=== PATIENT | female | born 1970 | race Asian ===

== ENCOUNTER 2017-05-04 15:41 | Emergency (ER) | payer OTHER, BC ==
--- NOTE | 2017-05-04 19:00 | ED Physician Documentation ---
PD HPI HEENT - Stated complaint Stated Complaint: HEARING ISSUE - Chief complaint Chief Complaint: Heent - History obtained from History obtained from: Patient - History of Present Illness Timing - onset: How many days ago (several) Timing - duration: Days Timing - details: Gradual onset, Still present, Waxing and waning Location: Right ear (feels less hearing, like it needs to clear. Has had some sore throat in morning, fullness right maxillary area.) Worsens: No: Swalllowing Associated symptoms: Congestion. No: Fever, Facial swelling, Cough Similar symptoms before: Has not had sx before Recently seen: Not recently seen Review of Systems Constitutional: denies: Fever, Chills Ears: reports: Loss of hearing. denies: Ear pain, Drainage/discharge, Tinnitus/ ringing Nose: reports: Congestion, Sinus pressure / pain Throat: reports: Sore throat (in morning, scratchy.) Cardiac: denies: Chest pain / pressure, Palpitations Respiratory: denies: Cough Skin: denies: Rash, Lesions PD PAST MEDICAL HISTORY - Past Medical History Past Medical History: No - Past Surgical History Past Surgical History: No - Present Medications Home Medications: Ambulatory Orders Medication Instructions Recorded Confirmed Cetirizine [ZyrTEC] 10 mg PO DAILY #14 tablet 05/04/17 Dexamethasone [Decadron] 4 mg PO DAILY #5 tablet 05/04/17 Doxycycline Hyclate 100 mg PO BID #14 tablet 05/04/17 - Allergies Allergies/Adverse Reactions: Allergies Allergy/AdvReac Type Severity Reaction Status Date / Time No Known Drug Allergies Allergy Verified 05/04/17 15:57 - Social History Does the pt smoke?: No Smoking Status: Never smoker Does the pt drink ETOH?: Yes Does the pt have substance abuse?: No PD ED PE NORMAL - Vitals Vital signs reviewed: Yes - General General: Alert and oriented X 3, No acute distress, Well developed/nourished - HEENT HEENT: Ears normal, Pharynx benign - Neck Neck: Supple, no meningeal sign, Other (mild right adenopathy on neck. ) - Cardiac Cardiac: RRR, No murmur - Respiratory Respiratory: Clear bilaterally - Abdomen Abdomen: Soft, Non tender - Derm Derm: Normal color, Warm and dry, No rash - Neuro Neuro: Alert and oriented X 3, second floor operator 2-12 intact, No motor deficit, Normal speech Results - Vitals Vitals: Oxygen O2 Source Room air PD MEDICAL DECISION MAKING - ED course Complexity details: considered differential (his hearing feels plugged. Ear looks okay. Has sinus symptoms. ), d/w patient Departure - Departure Disposition: 01 Home, Self Care Clinical Impression: Dysacusis Qualifiers: Laterality: right Qualified Code(s): H93.291 - Other abnormal auditory perceptions, right ear Sinusitis, acute Qualifiers: Sinusitis location: ethmoidal Recurrence: non-recurrent Qualified Code(s): J01.20 - Acute ethmoidal sinusitis, unspecified Condition: Stable Record reviewed to determine appropriate education?: Yes Instructions: ED Sinusitis Abx Tx Follow-Up: [facility] [Provider Group] Prescriptions: Cetirizine [ZyrTEC] 10 mg PO DAILY #14 tablet Dexamethasone [Decadron] 4 mg PO DAILY #5 tablet Doxycycline Hyclate 100 mg PO BID #14 tablet Comments: We will treat this as some inflammation or infection of the sinus and causing a blockage of the eustachian tube and affecting the hearing. Will use doxycycline twice a day for a week and dexamethasone daily for 5 days for infection and inflammation. Cetirizine antihistamine daily for 1-2 weeks. Also use Nasacort steroid nose spray once daily for the next several weeks. Recheck with your primary care or ENT in [place] if not improved over the next 5 or 6 days. Discharge Date/Time: 05/04/17 19:36
[2017-05-04 19:36] VITALS: BP 141/78
== END 2017-05-04 19:36 | disposition home or self-care (01) ==
LOC: ED 15:41
DX: H93.291 Other abnormal auditory perceptions, right ear (principal); J01.20 Acute ethmoidal sinusitis, unspecified
CPT/HCPCS: 99283

== ENCOUNTER 2018-09-09 00:07 | Emergency (ER) | payer BC, OTHER ==
[2018-09-09] MEDS ORDERED: SODIUM CHLORIDE 0.9% 1,000 ML IV ONE (00:20)
[2018-09-09] MEDS ORDERED: IBUPROFEN 800 MG TABLET PO STA (00:20)
[2018-09-09 00:49] LABS: BASOPHILS % (AUTO) 0.3 %; EOSINOPHILS % (AUTO) 0.6 %; HGB - HEMOGLOBIN 12.9 g/dL (12.0-16.0); LYMPHOCYTES % (AUTO) 14.2 %; MEAN CORPUSCULAR HGB CONC 33.1 g/dL (32.0-36.0); MEAN CORPUSCULAR VOLUME 90.8 fL (81.0-99.0); MEAN PLATELET VOLUME 7.5 fL (7.9-10.8); MONOCYTES # (AUTO) 0.1 10^3/uL (0.0-1.0); NEUTROPHILS # (AUTO) 5.8 10^3/uL (1.5-6.6); NEUTROPHILS % (AUTO) 83.9 %; PLT - PLATELET COUNT 192 10^3/uL (130-450); RED BLOOD COUNT 4.31 10^6/uL (4.20-5.40); WHITE BLOOD COUNT 6.9 x10^3/uL (4.8-10.8)
[2018-09-09 00:54] LABS: BILIRUBIN,URINE NEGATIVE (NEGATIVE); GLUCOSE, URINE (UA) NEGATIVE (NEGATIVE); KETONES,URINE (UA) TRACE mg/dL (NEGATIVE); LEUKOCYTE ESTERASE, URINE MODERATE (NEGATIVE); NITRITE,URINE NEGATIVE (NEGATIVE); OCCULT BLOOD,URINE LARGE (NEGATIVE); PROTEIN,URINE 100 mg/dL (NEGATIVE); UROBILINOGEN,URINE 0.2 (NORMAL) E.U./dL (NORMAL)
[2018-09-09 00:55] LABS: CLARITY,URINE SL. CLOUDY (CLEAR)
--- NOTE | 2018-09-09 00:58 | ED Physician Documentation ---
PD HPI FEMALE - Stated complaint Stated Complaint: CHILLS - Chief complaint Chief Complaint: Fever - History obtained from History obtained from: Patient, Family () - History of Present Illness Timing - onset: How many days ago (4) Timing - details: Gradual onset, Still present Associated symptoms: Fever, Dysuria Similar symptoms before: Has not had sx before - Additional information Additional information: The patient is a 48-year-old female who presents with fever and chills. She has had dysuria for the past 4 days. Fever started yesterday, with chills tonight. She has had one episode of vomiting just prior to arrival. She denies headache, sore throat, cough, or shortness of breath. She denies history of similar symptoms in the past. Her last menstrual period ended 5 days ago. Review of Systems Constitutional: reports: Fever, Chills Nose: denies: Congestion Throat: denies: Sore throat Cardiac: denies: Chest pain / pressure Respiratory: denies: Dyspnea, Cough GI: reports: Abdominal Pain (Mild lower abdominal pain.), Vomiting (once) : reports: Dysuria, Frequency, LMP (Ended 5 days ago.) Skin: denies: Rash Musculoskeletal: denies: Back pain Neurologic: denies: Headache PD PAST MEDICAL HISTORY - Past Medical History Cardiovascular: None Respiratory: None Endocrine/Autoimmune: None - Past Surgical History Past Surgical History: No - Present Medications Home Medications: Ambulatory Orders Medication Instructions Recorded Confirmed Cetirizine [ZyrTEC] 10 mg PO DAILY #14 tablet 05/04/17 Dexamethasone [Decadron] 4 mg PO DAILY #5 tablet 05/04/17 Doxycycline Hyclate 100 mg PO BID #14 tablet 05/04/17 Nitrofurantoin Monohyd/M-Cryst 100 mg PO BID #10 capsule 09/09/18 [Macrobid 100 mg Capsule] Phenazopyridine HCl [Pyridium] 200 mg PO TID PRN #6 tablet 09/09/18 - Allergies Allergies/Adverse Reactions: Allergies Allergy/AdvReac Type Severity Reaction Status Date / Time No Known Drug Allergies Allergy Verified 05/04/17 15:57 - Social History Does the pt smoke?: No Smoking Status: Never smoker Does the pt drink ETOH?: Yes Does the pt have substance abuse?: No PD ED PE NORMAL - Vitals Vital signs reviewed: Yes (febrile, tachycardic) - General General: Alert and oriented X 3, Well developed/nourished - HEENT HEENT: Atraumatic, Pharynx benign - Neck Neck: No adenopathy, No JVD - Cardiac Cardiac: Other (Rapid rate, regular rhythm) - Respiratory Respiratory: No respiratory distress, Clear bilaterally - Abdomen Abdomen: Soft, Other (Mild suprapubic tenderness to palpation, without rebound or guarding.) - Back Back: No CVA TTP - Derm Derm: No rash - Extremities Extremities: No edema, No calf tenderness / cord - Neuro Neuro: Alert and oriented X 3, No motor deficit, Normal speech Results - Vitals Vitals: Vital Signs - 24 hr 09/09/18 09/09/18 09/09/18 00:12 00:14 01:27 Temperature 38.2 C H Heart Rate 141 H 127 H 100 Respiratory 20 20 18 Rate Blood Pressure 144/75 H 144/75 H 117/69 O2 Saturation 100 92 95 Oxygen O2 Source Room air - Labs Labs: Laboratory Tests 09/09/18 09/09/18 09/09/18 00:23 00:33 00:33 WBC 6.9 RBC 4.31 Hgb 12.9 Hct 39.2 MCV 90.8 MCH 30.0 MCHC 33.1 RDW 13.0 Plt Count 192 MPV 7.5 L Neut # (Auto) 5.8 Lymph # (Auto) 1.0 L Cedar # (Auto) 0.1 Eos # (Auto) 0.0 Baso # (Auto) 0.0 Absolute Nucleated RBC 0.00 Nucleated RBC % 0.0 HCG, Quant < 0.60 Urine Color YELLOW Urine Clarity SL. CLOUDY Urine pH 6.0 Ur Specific Hector 1.025 Urine Protein 100 H Urine Glucose (UA) NEGATIVE Urine Ketones TRACE Urine Occult Blood LARGE H Urine Nitrite NEGATIVE Urine Bilirubin NEGATIVE Urine Urobilinogen 0.2 (NORMAL) Ur Leukocyte Esterase MODERATE H Urine RBC 6-10 H Urine WBC >25 H Ur Squamous Epith Cells NONE SEEN Urine Bacteria Few Ur Microscopic Review INDICATED Urine Culture Comments INDICATED PD MEDICAL DECISION MAKING - ED course Complexity details: reviewed results, re-evaluated patient, considered differential, d/w patient, d/w family ED course: The patient's presentation is most consistent with urinary tract infection, with associated fever and chills. Clinically, she does not appear septic, and her white count is normal at 6.9. Her urinalysis is positive for pyuria and bacteriuria. Culture and sensitivity is pending. Treatment in the emergency department included administration of normal saline 1 Liter IV, Ibuprophen 800 mg orally, Macrobid 100 mg orally, and Pyridium 200 mg orally. She is being discharged with prescriptions for Macrobid and Pyridium. I discussed with her and her the diagnosis, expected course of illness, antibiotic treatment and outpatient follow-up, as well as potentially worrisome signs or symptoms that should prompt reevaluation in the emergency department. Departure - Departure Disposition: Home, Self Care Clinical Impression: UTI (urinary tract infection) Qualifiers: Urinary tract infection type: acute cystitis Hematuria presence: without hematuria Qualified Code(s): N30.00 - Acute cystitis without hematuria Condition: Stable Instructions: ED UTI Cystitis Female Follow-Up: [facility] [Provider Group] Prescriptions: Nitrofurantoin Monohyd/M-Cryst [Macrobid 100 mg Capsule] 100 mg PO BID #10 capsule Phenazopyridine HCl [Pyridium] 200 mg PO TID PRN #6 tablet PRN Reason: dysuria Comments: Drink plenty of fluids, including cranberry juice. Take Macrobid twice daily as prescribed. You can use Pyridium as prescribed if needed for painful urination. You can use Tylenol or ibuprofen as needed for fever or discomfort. Follow up with your primary physician within 2 weeks. Call to schedule appointment. Return to the emergency department if you develop increasing abdominal pain, fever with shaking chills, persistent vomiting, or otherwise worsening symptoms. Discharge Date/Time: 09/09/18 01:28
[2018-09-09 01:00] LABS: BACTERIA,URINE Few /HPF (None Seen); SQUAMOUS EPITHELIAL CELL,UR NONE SEEN (<= Few)
[2018-09-09] MEDS ORDERED: NITROFURANTOIN MACRO 100 MG CAPSULE PO STA (01:07)
[2018-09-09] MEDS ORDERED: PHENAZOPYRIDINE 100 MG TABLET PO STA (01:08)
[2018-09-09 01:28] VITALS: BP 117/69
== END 2018-09-09 01:28 | disposition home or self-care (01) ==
LOC: ED 00:07
DX: N30.00 Acute cystitis without hematuria (principal)
CPT/HCPCS: 36415; 81001; 81003; 84702; 85025; 87086; 99283

== ENCOUNTER 2018-09-09 20:25 | Emergency (ER) | payer BC, OTHER ==
[2018-09-09 20:39] VITALS: BP 141/77
[2018-09-09] MEDS ORDERED: PSEUDOEPHEDRINE 30 MG TABLET PO STA (20:53)
[2018-09-09] MEDS ORDERED: IBUPROFEN 800 MG TABLET PO STA (20:54)
--- NOTE | 2018-09-09 20:57 | ED Physician Documentation ---
PD HPI URI - Stated complaint Stated Complaint: FEVER - Chief complaint Chief Complaint: Fever - History obtained from History obtained from: Patient, Family - History of Present Illness Timing - onset: How many days ago (3) Timing duration: Days (3) Timing details: Gradual onset Pain level max: 1 Pain level now: 1 Associated symptoms: Fever, Chills, Nasal congestion, Rhinorrhea, Dry cough Contributing factors: Sick contact Improves by: Rest Worsened by: Activity, Breathing Recently seen: Emergency Dept (last night for UTI, started on macrobid.) Review of Systems Constitutional: reports: Fever Respiratory: reports: Cough GI: denies: Nausea, Vomiting, Diarrhea Skin: denies: Rash Musculoskeletal: denies: Neck pain, Back pain Neurologic: denies: Headache PD PAST MEDICAL HISTORY - Past Medical History Cardiovascular: None Respiratory: None Endocrine/Autoimmune: None - Past Surgical History Past Surgical History: No - Present Medications Home Medications: Ambulatory Orders Medication Instructions Recorded Confirmed Cetirizine [ZyrTEC] 10 mg PO DAILY #14 tablet 05/04/17 Dexamethasone [Decadron] 4 mg PO DAILY #5 tablet 05/04/17 Doxycycline Hyclate 100 mg PO BID #14 tablet 05/04/17 Cetirizine HCl/Pseudoephedrine 1 each PO BID PRN #30 tab.er.12h 09/09/18 [Zyrtec-D Tablet] Nitrofurantoin Monohyd/M-Cryst 100 mg PO BID #10 capsule 09/09/18 [Macrobid 100 mg Capsule] Phenazopyridine HCl [Pyridium] 200 mg PO TID PRN #6 tablet 09/09/18 - Allergies Allergies/Adverse Reactions: Allergies Allergy/AdvReac Type Severity Reaction Status Date / Time No Known Drug Allergies Allergy Verified 05/04/17 15:57 - Social History Does the pt smoke?: No Smoking Status: Never smoker Does the pt drink ETOH?: Yes Does the pt have substance abuse?: No PD ED PE NORMAL - Vitals Vital signs reviewed: Yes - General General: Alert and oriented X 3, No acute distress - HEENT HEENT: PERRL, Ears normal, Moist mucous membranes, Pharynx benign - Neck Neck: Supple, no meningeal sign, No adenopathy - Cardiac Cardiac: RRR, Strong equal pulses - Respiratory Respiratory: No respiratory distress, Clear bilaterally - Abdomen Abdomen: Soft, Non tender, Non distended - Back Back: No CVA TTP, No spinal TTP - Derm Derm: Warm and dry - Extremities Extremities: No edema - Neuro Neuro: Alert and oriented X 3 - Psych Psych: Normal mood, Normal affect Results - Vitals Vitals: Vital Signs - 24 hr 09/09/18 09/09/18 20:35 20:43 Temperature 37.9 C H Heart Rate 115 H 110 H Respiratory 18 18 Rate Blood Pressure 141/77 H 141/77 H O2 Saturation 94 94 Oxygen O2 Source Room air - Labs Labs: Laboratory Tests 09/09/18 20:57 Influenza A (Rapid) Negative Influenza B (Rapid) Negative PD MEDICAL DECISION MAKING - ED course Complexity details: reviewed results, re-evaluated patient, considered differential, d/w patient, d/w family ED course: 48-year-old female presents the emergency department with what appears to be a viral upper respiratory infection. She is being treated for UTI as well. Does not appear to be pyelonephritis however. No CVA tenderness. Her dysuria is improving after being on antibiotics for 24 hours. She is well-appearing, nontoxic. Will continue decongestants at home and follow-up with her doctor. Influenza swab is negative. Patient counseled regarding signs and symptoms for which I believe and urgent re-evaluation would be necessary. Patient with good understanding of and agreement to plan and is comfortable going home at this time This document was made in part using voice recognition software. While efforts are made to proofread this document, sound alike and grammatical errors may occur. Departure - Departure Disposition: 01 Home, Self Care Clinical Impression: Viral URI with cough Fever Qualifiers: Fever type: unspecified Qualified Code(s): R50.9 - Fever, unspecified Condition: Good Instructions: ED Viral Syndrome Follow-Up: your,doctor in 1 week [Other] Prescriptions: Cetirizine HCl/Pseudoephedrine [Zyrtec-D Tablet] 1 each PO BID PRN #30 tab.er.12h PRN Reason: nasal congestion Comments: Continue the antibiotics at home. Return if you worsen. Drink plenty of fluids and rest.
== END 2018-09-09 21:42 | disposition home or self-care (01) ==
LOC: ED 20:25
DX: J06.9 Acute upper respiratory infection, unspecified (principal); N30.00 Acute cystitis without hematuria
CPT/HCPCS: 36415; 81001; 84702; 85025; 87086; 87275; 87276; 99283; A9270

== ENCOUNTER 2019-12-01 13:31 | Emergency (ER) | payer BC, OTHER ==
[2019-12-01] MEDS ORDERED: EPINEPHrine 1 MG/ML AMP ONE (13:56)
[2019-12-01] MEDS: DEXAMETHASONE 10 MG/ML VIAL IVP STA (13:57)
[2019-12-01] MEDS: diphenhydrAMINE INJ 50 MG/ML VIAL IVP STA (13:57)
--- NOTE | 2019-12-01 15:40 | ED Physician Documentation ---
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 She has a bit of a rash on her right shoulder associated with this. She has been stung a number of times previously usually she will have some swelling associated with her stings. She does not have a diagnosis of bee sting anaphylaxis. Review of Systems Constitutional: denies: Fever Eyes: denies: Decreased vision Ears: denies: Ear pain Nose: denies: Rhinorrhea / runny nose, Congestion Throat: reports: Other (Swollen lips). denies: Sore throat Cardiac: denies: Chest pain / pressure, Palpitations Respiratory: denies: Dyspnea, Cough GI: denies: Abdominal Pain, Nausea, Vomiting : denies: Dysuria, Frequency PD PAST MEDICAL HISTORY - Past Medical History Cardiovascular: None Respiratory: None Endocrine/Autoimmune: None - Past Surgical History Past Surgical History: No - Present Medications Home Medications: Ambulatory Orders Medication Instructions Recorded Confirmed Cetirizine [ZyrTEC] 10 mg PO DAILY #14 tablet 05/04/17 Doxycycline Hyclate 100 mg PO BID #14 tablet 05/04/17 dexAMETHasone [Decadron] 4 mg PO DAILY #5 tablet 05/04/17 Cetirizine HCl/Pseudoephedrine 1 each PO BID PRN #30 tab.er.12h 09/09/18 [Zyrtec-D Tablet] Nitrofurantoin Monohyd/M-Cryst 100 mg PO BID #10 capsule 09/09/18 [Macrobid 100 mg Capsule] Phenazopyridine HCl [Pyridium] 200 mg PO TID PRN #6 tablet 09/09/18 EPINEPHrine [Epinephrine] 0.3 mg IJ ONCE PRN #2 auto.injct 12/01/19 - Allergies Allergies/Adverse Reactions: Allergies Allergy/AdvReac Type Severity Reaction Status Date / Time No Known Drug Allergies Allergy Verified 12/01/19 13:38 - Social History Does the pt smoke?: No Smoking Status: Never smoker Does the pt drink ETOH?: Yes Does the pt have substance abuse?: No PD ED PE NORMAL - Vitals Vital signs reviewed: Yes (Hypotensive) - General General: Alert and oriented X 3, No acute distress, Well developed/nourished - HEENT HEENT: Atraumatic, PERRL, EOMI, Moist mucous membranes, Other (marked swelling of the right upper lip NO swelling to the tongue or pharynx., ) - Neck Neck: Supple, no meningeal sign, No bony TTP - Cardiac Cardiac: RRR, No murmur - Respiratory Respiratory: No respiratory distress, Clear bilaterally - Abdomen Abdomen: Soft, Non tender - Back Back: No CVA TTP, No spinal TTP - Derm Derm: Normal color, Warm and dry, Other (erythema to the right shoulder) - Extremities Extremities: No deformity, No edema, No calf tenderness / cord - Neuro Neuro: Alert and oriented X 3, banking consultant 2-12 intact, No motor deficit, No sensory deficit Eye Opening: Spontaneous Motor: Obeys Commands Verbal: Oriented GCS Score: 15 - Psych Psych: Normal mood, Normal affect Results - Vitals Vitals: Vital Signs - 24 hr 12/01/19 12/01/19 12/01/19 13:38 14:00 14:15 Temperature 36.7 C Heart Rate 72 82 68 Respiratory 22 21 18 Rate Blood Pressure 67/34 L 108/69 112/77 O2 Saturation 98 98 98 12/01/19 12/01/19 14:30 15:00 Temperature Heart Rate 66 78 Respiratory 18 20 Rate Blood Pressure 121/71 113/74 O2 Saturation 99 98 Oxygen O2 Source Room air PD MEDICAL DECISION MAKING - ED course Complexity details: re-evaluated patient, considered differential, d/w patient ED course: 49-year-old female with a bee sting to the right upper lip has massive swelling and she arrives to the emergency department hypotensive. She is administered dexamethasone and Benadryl has prompt improvement and she has further improvement as time goes on. 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 We will prescribe a EpiPen to her today. She has had bee stings previously with marked swelling she has not been diagnosed with anaphylaxis she arrived today hypotensive we are diagnosing her with bee sting anaphylaxis. Departure - Departure Disposition: 01 Home, Self Care Clinical Impression: Bee sting-induced anaphylaxis Qualifiers: Encounter type: initial encounter Injury intent: accidental or unintentional Qualified Code(s): T63.441A - Toxic effect of venom of bees, accidental (unin tentional), initial encounter Condition: Stable Instructions: ED Bite Sting Insect Gen Allergic React Follow-Up: [facility] [Provider [facility]] Prescriptions: EPINEPHrine [Epinephrine] 0.3 mg IJ ONCE PRN #2 auto.injct PRN Reason: bee sting Comments: Today when you were stung by this be you had a significant reaction that appears to be systemic and this affected your blood pressure. This indicates a condition called bee sting anaphylaxis. 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 In addition we have provided a prescription for an EpiPen and the recommendation is to use this immediately if you are stung by a bee again. Carry this with you at all times.
[2019-12-01 16:17] VITALS: BP 112/71
== END 2019-12-01 16:26 | disposition home or self-care (01) ==
LOC: ED 13:31
DX: T63.441A Toxic effect of venom of bees, accidental (unintentional), initial encounter (principal); R22.0 Localized swelling, mass and lump, head; R21 Rash and other nonspecific skin eruption
CPT/HCPCS: 36415; 96374; 99284

== ENCOUNTER 2021-08-29 04:57 | Outpatient (CLI) | payer BC, OTHER | END 2021-08-29 04:58 | disposition EMS.NT | LOC: EMS 04:57 | DX: M25.512 Pain in left shoulder (principal); V48.5XXA Car driver injured in noncollision transport accident in traffic accident, initial encounter; Y92.413 State road as the place of occurrence of the external cause ==

== ENCOUNTER 2023-12-11 04:56 | Emergency (ER) | payer BC, OTHER ==
--- NOTE | 2023-12-11 05:07 | ED Physician Documentation ---
History of Present Illness - Stated complaint Stated Complaint: LOW BP - Chief complaint Chief Complaint: Cardiac - Additonal information Additional information: Patient 53-year-old female presenting to the emergency department chief complai nt chest pain. Pain ongoing x 1 month. Today became worse and woke her from sleep. She felt slightly dizzy. Family took her blood pressure with a home's finger manometry And found her systolics in the 70s. They gave 2 Tylenol and she drank a glass of water before coming to the emergency department. Reports history of prediabetes. Denies any history of hypertension, dyslipidemia, smoking Review of Systems Constitutional: denies: Fever Eyes: denies: Loss of vision Ears: denies: Loss of hearing Nose: denies: Rhinorrhea / runny nose Throat: denies: Dental pain / toothache Cardiac: reports: Chest pain / pressure Respiratory: denies: Dyspnea GI: denies: Abdominal Pain : denies: Dysuria PD PAST MEDICAL HISTORY - Past Medical History Past Medical History: No Cardiovascular: None Respiratory: None Endocrine/Autoimmune: None - Past Surgical History Past Surgical History: No - Present Medications Home Medications: Ambulatory Orders Medication Instructions Recorded Confirmed Cetirizine [ZyrTEC] 10 mg PO DAILY #14 tablet 05/04/17 Doxycycline Hyclate 100 mg PO BID #14 tablet 05/04/17 dexAMETHasone [Decadron] 4 mg PO DAILY #5 tablet 05/04/17 Cetirizine HCl/Pseudoephedrine 1 each PO BID PRN #30 tab.er.12h 09/09/18 [Zyrtec-D Tablet] Nitrofurantoin Monohyd/M-Cryst 100 mg PO BID #10 capsule 09/09/18 [Macrobid 100 mg Capsule] Phenazopyridine HCl [Pyridium] 200 mg PO TID PRN #6 tablet 09/09/18 EPINEPHrine [Epinephrine] 0.3 mg IJ ONCE PRN #2 auto.injct 12/01/19 Pantoprazole Sodium [Protonix] 40 mg PO DAILY #30 tab 12/11/23 - Allergies Allergies/Adverse Reactions: Allergies Allergy/AdvReac Type Severity Reaction Status Date / Time No Known Drug Allergies Allergy Verified 12/11/23 05:04 - Social History Does the pt smoke?: No Smoking Status: Never smoker Does the pt drink ETOH?: Yes Does the pt have substance abuse?: No PD ED PE NORMAL - General General: Alert and oriented X 3 - HEENT HEENT: Atraumatic - Neck Neck: Supple, no meningeal sign - Cardiac Cardiac: RRR - Respiratory Respiratory: No respiratory distress - Abdomen Abdomen: Normal bowel sounds - Female Female : Deferred - Rectal Rectal: Deferred - Back Back: No CVA TTP - Derm Derm: Normal color - Extremities Extremities: No deformity - Neuro Neuro: Alert and oriented X 3, radio communication coordinator 2-12 intact, No motor deficit, No sensory deficit, Normal speech Results - Vitals Vitals: Vital Signs - 24 hr 12/11/23 12/11/23 12/11/23 05:02 05:13 06:58 Temperature 36.7 C Heart Rate 81 70 71 Respiratory 16 16 16 Rate Blood Pressure 122/63 122/63 113/66 O2 Saturation 97 99 98 Oxygen O2 Source Room air - EKG (time done) 0508 EKG releavant findings:: EKG personally interpreted by author of this note. Relevant findings are: Sinus rhythm with rate 72 bpm. Normal axis. Normal CA, QRS, QTc intervals. No ST segment elevations or T wave inversions. - Labs Labs: Laboratory Tests 12/11/23 12/11/23 12/11/23 05:11 05:31 05:31 WBC 11.4 H RBC 4.63 Hgb 13.6 Hct 42.9 MCV 92.7 MCH 29.4 MCHC 31.7 L RDW 12.6 Plt Count 253 MPV 9.5 Neut # (Auto) 8.2 H Lymph # (Auto) 2.4 [place] # (Auto) 0.5 Eos # (Auto) 0.2 Baso # (Auto) 0.0 Absolute Nucleated RBC 0.00 Nucleated RBC % 0.0 D-Dimer < 200.0 L Sodium 141 Potassium 3.4 L Chloride 105 Carbon Dioxide 30 Anion Gap 6.0 BUN 18 Creatinine 0.8 Estimated GFR (MDRD) 75 L Glucose 114 H Calcium 9.2 Total Bilirubin 0.3 AST 15 ALT 17 Alkaline Phosphatase 64 Troponin I High Sens < 2.3 L Total Protein 6.9 Albumin 4.0 Globulin 2.9 Albumin/Globulin Ratio 1.4 Lipase 14 PD Medical Decision Making - ED course ED course: Patient 53-year-old female presenting with 1 month history of substernal chest pain. Afebrile, hemodynamically stable. EKG nonacute. High-sensitivity troponin is negative as is her D-dimer. Per my interpretation her chest x-ray is also benign with no mediastinal widening, pneumothorax, hemothorax or cardiomegaly. Her abdominal exam is benign here in the emergency department. She was monitored for several hours without new or worsening symptoms. On reevaluation she does report a history of gastric reflux and family reports she has had endoscopies done in the past for evaluation of GERD. Given the duration of her symptoms as well as the location of her pain I believe that she is having a exacerbation of her chronic gastric reflux. She is not currently taking any medications. She is given dose of Protonix in the emergency department and discharged on course of same. She is encouraged to follow-up with her primary care doctor or return to the emergency department for new or worsening symptoms. Departure - Departure Disposition: 01 Home, Self Care Clinical Impression: Chest pain Instructions: ED Chest Pain Atypical Unkn Cause Prescriptions: Pantoprazole Sodium [Protonix] 40 mg PO DAILY #30 tab Comments: Thank you for allowing us to care for you today at [facility]. Prescriptions were sent to [facility] pharmacy, [place]. Today in the emergency department you were evaluated for any possible dangerous or life-threatening medical emergency. The test performed in the emergency department today including your EKG, blood work, chest x-ray were all very reassuring. We will give a dose of an antiacid medication. I like you to begin a course of antiacids as a believe it is possible you are experiencing gastric reflux or irritation around your esophagus. It is very important that you follow-up with your primary care doctor concerning your ER evaluation While your results today are very reassuring if you have new or worsening symptoms of any kind please return to the emergency room. Forms: PCP List
[2023-12-11 05:55] LABS: BASOPHILS % (AUTO) 0.2 %; EOSINOPHILS # (AUTO) 0.2 10^3/uL (0.0-0.7); EOSINOPHILS % (AUTO) 1.8 %; HCT - HEMATOCRIT 42.9 % (37.0-47.0); HGB - HEMOGLOBIN 13.6 g/dL (12.0-16.0); LYMPHOCYTES # (AUTO) 2.4 10^3/uL (1.5-3.5); LYMPHOCYTES % (AUTO) 20.8 %; MEAN CORPUSCULAR HEMOGLOBIN 29.4 pg (27.0-31.0); MEAN CORPUSCULAR HGB CONC 31.7 g/dL (32.0-36.0); MEAN CORPUSCULAR VOLUME 92.7 fL (81.0-99.0); MEAN PLATELET VOLUME 9.5 fL (7.9-10.8); MONOCYTES # (AUTO) 0.5 10^3/uL (0.0-1.0); MONOCYTES % (AUTO) 4.5 %; NEUTROPHILS # (AUTO) 8.2 10^3/uL (1.5-6.6); NEUTROPHILS % (AUTO) 72.3 %; PLT - PLATELET COUNT 253 10^3/uL (130-450); RED BLOOD COUNT 4.63 10^6/uL (4.20-5.40); RED CELL DISTRIBUTION WIDTH 12.6 % (12.0-15.0); WHITE BLOOD COUNT 11.4 x10^3/uL (4.8-10.8)
[2023-12-11 06:15] LABS: ALBUMIN/GLOBULIN RATIO 1.4 (1.0-2.2); ALKALINE PHOSPHATASE 64 IU/L (42-121); ALT ALANINE AMINOTRANSFERASE 17 IU/L (10-60); AST ASPARTATE AMINOTRANSFERASE 15 IU/L (10-42); BILIRUBIN,TOTAL 0.3 mg/dL (0.2-1.0); BUN - BLOOD UREA NITROGEN 18 mg/dL (6-20); CALCIUM 9.2 mg/dL (8.5-10.3); CARBON DIOXIDE - CO2 30 mmol/L (21-32); CHLORIDE 105 mmol/L (101-111); CREATININE 0.8 mg/dL (0.6-1.3); GFR - MDRD 75 (>89); GLUCOSE 114 mg/dL (74-104); LIPASE 14 U/L (11-82); POTASSIUM 3.4 mmol/L (3.5-4.5); SODIUM 141 mmol/L (135-145); TOTAL PROTEIN 6.9 g/dL (6.4-8.9)
[2023-12-11 06:19] LABS: TROPONIN I HIGH SENSITIVITY < 2.3 ng/L (2.3-14.8)
[2023-12-11] MEDS ORDERED: PANTOPRAZOLE 40 MG VIAL IVP STA (07:00)
[2023-12-11 07:06] VITALS: BP 113/66; O2SAT 98
--- NOTE | 2023-12-11 08:02 | XRAY Report ---
PROCEDURE: Chest 1V INDICATIONS: chest pain TECHNIQUE: One view of the chest was acquired. COMPARISON: None. FINDINGS: Surgical changes and devices: None. Lungs and pleura: No pleural effusions or pneumothorax. Lungs are clear. Mediastinum: Mediastinal contours appear normal. Heart size is normal. Bones and chest wall: No suspicious bony lesions. Overlying soft tissues appear unremarkable. IMPRESSION: No acute cardiopulmonary process. Reviewed by: Mitchel Rivera MD on 12/11/2023 8:01 AM PDT Approved by: Mitchel Rivera MD on 12/11/2023 8:01 AM PDT Station ID: [id number]
== END 2023-12-11 07:08 | disposition home or self-care (01) ==
LOC: ED 04:56
DX: R07.9 Chest pain, unspecified (principal)
CPT/HCPCS: 36415; 80053; 83690; 84484; 85025; 85379; 93005; 99284